=== PATIENT | male | born 2000 | race Caucasian/White ===

== ENCOUNTER 2019-08-07 05:25 | Emergency (ER) | payer OTHER ==
[~2019-08-07] VITALS: Ht 180.3 cm; Wt 88.5 kg
[2019-08-07 05:32] VITALS: BP 136/86
--- NOTE | 2019-08-07 05:43 | NUR ---
PT AMBUALTED TO BED 7 WITH STEADY GAIT
--- NOTE | 2019-08-07 05:45 | NUR ---
PT AMBULATED TO RESTROOM WITH STEADY GAIT. UA CUP GIVEN TO PT.
--- NOTE | 2019-08-07 06:10 | NUR ---
IV PLACED IN R AC 20G. IV SITE IS PATENT. LABS DRAWN AND GIVEN TO CASINO FLOOR PERSON.
--- NOTE | 2019-08-07 06:11 | NUR ---
URINAL GIVEN AT BEDSIDE. PT ATTEMPTING TO GIVE UA SAMPLE.
[2019-08-07] MEDS ORDERED: NACL 0.9% 1,000 ML IV ONE (06:15)
--- NOTE | 2019-08-07 06:24 | NUR ---
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
[2019-08-07 06:34] LABS: BASOPHILS # (AUTO) 0.1 K/uL (0.00-0.22); BASOPHILS % (AUTO) 0.6 % (0.0-2.0); EOSINOPHILS # (AUTO) 0.1 K/uL (0-0.4); HEMATOCRIT 44.7 % (36-52); HEMOGLOBIN 14.8 g/dL (12.0-18.0); LYMPHOCYTES # (AUTO) 1.9 K/uL (2.0-11.5); LYMPHOCYTES % (AUTO) 15.4 % (20.5-51.1); MEAN CORPUSCULAR HEMOGLOBIN 29 pg (27-31); MEAN CORPUSCULAR HGB CONC 33 g/dL (33-37); MEAN CORPUSCULAR VOLUME 88.5 fL (80-94); MONOCYTES # (AUTO) 0.9 K/uL (0.8-1.0); MONOCYTES % (AUTO) 7.1 % (1.7-9.3); NEUTROPHILS # (AUTO) 9.3 K/uL (1.8-7.7); NEUTROPHILS % (AUTO) 75.9 % (42.2-75.2); PLATELET COUNT (AUTO) 276 K/uL (140-450); RED BLOOD CELL COUNT(AUTO) 5.05 MIL/uL (4.20-6.10); RED CELL DISTRIBUTION WIDTH 13.6 % (11.6-13.7); WHITE BLOOD COUNT (AUTO) 12.2 K/uL (4.5-11.0)
--- NOTE | 2019-08-07 07:00 | NUR ---
PT TAKEN TO CT VIA WHEELCHAIR
--- NOTE | 2019-08-07 07:10 | NUR ---
PT RETURNED FROM CT VIA WHEELCHAIR
[2019-08-07 07:13] LABS: ALBUMIN 4.8 g/dL (3.4-5.0); ANION GAP 15.9 (8-16); ASPARTATE AMINOTRANSFERASE 37 U/L (15-37); CARBON DIOXIDE 26.4 mmol/L (21-32); CHLORIDE 103 mmol/L (98-107); CREATININE 1.1 mg/dL (0.6-1.3); GFR ARICAN-AMERICAN 110 mL/min (>90); GLUCOSE 130 mg/dL (74-106); POTASSIUM 4.3 mmol/L (3.5-5.1); SODIUM SERUM 141 mmol/L (136-145); TOTAL BILIRUBIN 0.8 mg/dL (0.0-1.0); UREA NITROGEN, BLOOD 14 mg/dL (7-18)
--- NOTE | 2019-08-07 07:23 | NUR ---
OBTAINED REPORT FROM MAGI SIMMONS FOR CONTINUITY OF CARE
--- NOTE | 2019-08-07 07:23 | NUR ---
TPt report given to IRIS HARPER. Transfer of care at this time.
--- NOTE | 2019-08-07 07:45 | NUR ---
Mikaela wyatt in [facility] - 08/07/19 at 0805 by LIBIA COVID-19 SWAB COLLECTED AND SENT TO THE LAB.
[2019-08-07 08:17] VITALS: BP 134/87
--- NOTE | 2019-08-07 08:17 | NUR ---
Patient discharged with v/s stable. Written and verbal after care instructions given and explained. Patient verbalized understanding. Ambulatory with steady gait. All questions addressed prior to discharge. Advised to follow up with PMD. PTS STATES HIS RIDE IS WAITING FOR HIM IN CAR. PT AMB WITH STEADY GAIT OUT OF ER
[2019-08-07 08:24] LABS: BARBITURATE, URINE NEGATIVE ng/ml (NEG <=200); BENZODIAZEPINE, URINE NEGATIVE ng/mL (NEG <=200); CANNABINOID, URINE NEGATIVE ng/mL (NEG <=50); COCAINE, URINE NEGATIVE ng/mL (NEG <=300); OPIATE, URINE NEGATIVE ng/mL (NEG <=2000); PHENCYCLIDINE SCREEN,URINE NEGATIVE ng/mL (NEG <=25)
[2019-08-07 14:28] LABS: APPEARANCE,URINE CLOUDY (CLEAR); BILIRUBIN,URINE 1+ (NEGATIVE); BLOOD, URINE NEGATIVE (NEGATIVE); COLOR,URINE DARK YELLOW (YELLOW); LEUKOCYTE ESTERASE ,URINE NEGATIVE (NEGATIVE); NITRITE, URINE NEGATIVE (NEGATIVE); UGLUCOSE NEGATIVE (NEGATIVE)
[2019-08-08 10:10] LABS: HEPATITIS A ANTIBODY IGM Negative (Negative); HEPATITIS B CORE AB TOTAL Negative (Negative); HEPATITIS B SURFACE ANTIBODY Non Reactive (.); HEPATITIS B SURFACE ANTIGEN Negative (Negative)
[2019-08-09 06:09] LABS: CHLAMYDIA TRACHOMATIS AMP DNA Negative (Negative)
== END 2019-08-07 08:17 | disposition home or self-care (01) ==
LOC: MED 05:25
DX: R56.9 Unspecified convulsions (principal); F19.10 Other psychoactive substance abuse, uncomplicated; F17.210 Nicotine dependence, cigarettes, uncomplicated
CPT/HCPCS: 36415; 70450; 80053; 80305; 81003; 85025; 86702; 86704; 86706; 86708; 86709; 86803; 87340; 87491; 93005; 99285; G0482; J7030